=== PATIENT | female | born 1970 | race Caucasian/White ===

== ENCOUNTER → 2017-06-25 | Outpatient (REF) | payer OTHER ==
[~2017-06-25] MED LIST: OMEP20CA3 PO
[2017-06-25 12:45] LABS: BASO % 0.4 % (0.0-1.0); EOS # 0.1 10^3/uL (0.0-0.50); EOS % 1.5 % (0.0-3.0); IMMATURE GRANULOCYTE % 0.1 % (0-0); LYMPH # 2.4 10^3/uL (1.5-4.5); MEAN CORPUSCULAR HEMOGLOBIN 29.9 pg (27.0-33.0); MEAN CORPUSCULAR HGB CONC 32.4 g/dl (32.0-36.5); MEAN CORPUSCULAR VOLUME 92.3 fl (80.0-96.0); MONO # 0.6 10^3/uL (0.0-0.8); MONO % 7.9 % (0.0-5.0); NEUTROPHILS # 4.2 10^3/uL (1.8-7.7); NEUTROPHILS % 57.1 % (36.0-66.0); PLATELET COUNT, AUTOMATED 300 10^3/uL (150-450); RED CELL DISTRIBUTION WIDTH 12.8 % (11.5-14.5); WHITE BLOOD COUNT 7.4 10^3/uL (4.0-10.0)
[2017-06-25 13:04] LABS: ALBUMIN/GLOBULIN RATIO 1.33 (1.00-1.93); ALKALINE PHOSPHATASE 54 U/L (45-117); ALT/SGPT 17 U/L (12-78); AMYLASE 49 U/L (25-115); ANION GAP 7 MEQ/L (8-16); AST/SGOT 9 U/L (15-37); BILIRUBIN,TOTAL 0.6 MG/DL (0.2-1.0); BLOOD UREA NITROGEN 7 MG/DL (7-18); CALCIUM LEVEL 9.2 MG/DL (8.5-10.1); CARBON DIOXIDE LEVEL 29 MEQ/L (21-32); CHLORIDE LEVEL 103 MEQ/L (98-107); CREATININE FOR GFR 0.73 MG/DL (0.55-1.02); GLOMERULAR FILTRATION RATE > 60.0 (>58); GLUCOSE, FASTING 88 MG/DL (70-105); POTASSIUM SERUM 4.3 MEQ/L (3.5-5.1); SODIUM LEVEL 139 MEQ/L (136-145)
== END ==
LOC: M LABDRAW1 11:32
PROVIDERS: ATTEND Family Medicine
DX: R10.11 Right upper quadrant pain (principal)

== ENCOUNTER 2017-07-19 12:59 | Day surgery (SDC) | payer OTHER ==
[~2017-07-19] VITALS: Ht 167.6 cm; Wt 67.6 kg
[2017-07-19] MEDS ORDERED: LIDOCAINE 1% MDV 20ML VIAL SQ PRN (13:30)
[2017-07-19] MEDS ORDERED: LR 1,000 ML IV ONE (13:30)
[2017-07-19] MEDS ORDERED: CLINDAMYCIN 600 MG in APPROPRIATE DILUENT 1 EA IV ONE (13:30)
[2017-07-19 13:32] LABS: CONTROL LINE UCG INT CTR LINE PRESENT
[2017-07-19] MEDS ORDERED: BUPIVACAINE/EPIN 0.25% 30 ML VIAL As Ordered ONE (14:52)
[2017-07-19] MEDS ORDERED: LIDOCAINE 2% INJ 100 MG/5 ML SDV (FOR ANES.) As Ordered ONE (15:10)
[2017-07-19] MEDS ORDERED: PROPOFOL 200 MG/20 ML VIAL As Ordered ONE (15:10)
[2017-07-19] MEDS ORDERED: ROCURONIUM BROMIDE 50 MG/5 ML VIAL/SYRINGE As Ordered ONE (15:10)
[2017-07-19] MEDS ORDERED: fentaNYL 250 MCG/5 ML INJECTION (J3010) As Ordered ONE (15:10)
[2017-07-19] MEDS ORDERED: MIDAZOLAM INJ 2 MG/2 ML VIAL (J2250) As Ordered ONE (15:10)
[2017-07-19] MEDS ORDERED: PHENYLephrine HCL 500 MCG/5 ML (100MCG/ML) SYRINGE (J2370) As Ordered ONE (15:26)
[2017-07-19] MEDS ORDERED: ONDANSETRON 4MG/2ML VIAL (J2405) As Ordered ONE ×2 (15:27→16:15)
[2017-07-19] MEDS ORDERED: dexameTHASONE 4 MG/ML 1ML VIAL (J1100) As Ordered ONE (15:27)
[2017-07-19] MEDS ORDERED: ePHEDrine SULFATE 25 MG/5 ML(5MG/ML) SYRINGE As Ordered ONE (15:36)
[2017-07-19] MEDS ORDERED: NEOSTIGMINE 10 MG/10 ML VIAL (J2710) As Ordered ONE (15:46)
[2017-07-19] MEDS ORDERED: GLYCOPYRROLATE INJ 0.2 MG/ML 2 ML VIAL As Ordered ONE (15:46)
[2017-07-19] MEDS ORDERED: KETOROLAC 60 MG/2 ML VIAL (J1885) As Ordered ONE (15:47)
[2017-07-19] MEDS ORDERED: HYDROmorphone HCL 2 MG/ML 1ML VIAL (J1170) As Ordered ONE (16:00)
[2017-07-19] MEDS ORDERED: PERCOCET 5MG/325MG TAB As Ordered ONE ×2 (16:15→16:49)
[2017-07-19] MEDS ORDERED: fentaNYL 100 MCG/2 ML INJECTION (J3010) As Ordered ONE (16:15)
[2017-07-19] MEDS: fentaNYL 100 MCG/2 ML INJECTION (J3010) IV PRN ×4 (16:18→16:32)
[2017-07-19] MEDS: PERCOCET 5MG/325MG TAB PO PRN ×2 (16:20→16:50)
[2017-07-19] MEDS ORDERED: ONDANSETRON 4MG/2ML VIAL (J2405) IV PRN (17:00)
[2017-07-19] MEDS ORDERED: NORCO, ANEXSIA 5/325MG TABLET (HYDROcodone/ACETAMINOPHEN) PO PRN (17:00)
[2017-07-19] MEDS ORDERED: LR 1,000 ML IV SCH (17:00)
[2017-07-19] MEDS ORDERED: MORPHINE 10 MG/ML 1ML VIAL As Ordered ONE (17:03)
[2017-07-19] MEDS: MORPHINE 10 MG/ML 1ML VIAL IV SCH ×2 (17:05→17:10)
[2017-07-19] MEDS ORDERED: MORPHINE 2 MG/ML 1ML SYRINGE IV SCH (17:30)
[2017-07-19 18:00] VITALS: BP 130/76
[2017-07-19] MEDS ORDERED: METOCLOPRAMIDE INJ 10MG/2ML VIAL (J2765) IV SCH (18:45)
--- NOTE | 2017-07-19 19:26 | RO ---
DATE OF PROCEDURE: 07/19/2017 PREOPERATIVE DIAGNOSIS: Symptomatic cholelithiasis. POSTOPERATIVE DIAGNOSIS: Symptomatic cholelithiasis. PROCEDURE: Laparoscopic cholecystectomy. SURGEON: Dr. Yehuda Wen ASSISTANT RESEARCH SCIENTIST: None. ANESTHESIA: General. ESTIMATED BLOOD LOSS: 10 mL. COMPLICATIONS: None. INDICATIONS FOR PROCEDURE: The patient is a 47-year-old female who presents with right upper quadrant abdominal pain, found to have signs and symptoms consistent with symptomatic cholelithiasis. Recommendation to proceed with laparoscopic, possible open repair. Risks and benefits of the procedure not limited to but including bleeding, infection, hernia formation, damage to surrounding structures and need for further surgery were discussed in detail with the patient. Informed consent was obtained and procedure was planned. DESCRIPTION OF PROCEDURE: The patient was brought back to operating room six after sufficient sedation. The abdomen was sterilely prepped and draped. Next, a time-out was done to confirm proper patient, proper procedure. Following that, an 8 mm infraumbilical incision was made. Veress needle was then inserted and the abdomen was insufflated to 15 mmHg. Next, the Veress needle was removed and an 8 mm port was then placed. The camera was then inserted and the abdomen was examined to make sure there were no signs of injury during Veress needle placement. Next, 3 mm ports were placed, one subxiphoid, two in the right upper quadrant. The fundus of the gallbladder was grasped and elevated up towards the right shoulder. The cystic duct and cystic artery were both dissected free using a combination of blunt and sharp dissection, and they were both then doubly clipped and cut. The gallbladder was then removed from the gallbladder fossa using electrocautery. Once the gallbladder was removed, it was taken out with a 5 mm EndoCatch bag through the umbilical port site. Right upper quadrant was then examined. Hemostasis was controlled with electrocautery. #0 Vicryl suture and a Durga-Elizabeth needle were used to close fascia of the umbilical port site. The abdomen was then desufflated, ports were removed. #4-0 Vicryl subcuticular suture was thrown at the umbilical skin incision to close it. The rest of the abdomen was then cleaned and dried. Steri-Strips were placed, covered by 4x4s and tape, thus ending procedure.
== END 2017-07-19 19:28 | disposition home or self-care (01) ==
LOC: M SDC 12:59
PROVIDERS: ATTEND Surgery
DX: K80.20 Calculus of gallbladder without cholecystitis without obstruction (principal); K21.9 Gastro-esophageal reflux disease without esophagitis; Z88.0 Allergy status to penicillin; Z79.899 Other long term (current) drug therapy
CPT/HCPCS: 47562; 84703; 88304; J1100; J1170; J1885; J2250; J2370; J2405; J2710; J2765; J3010

== ENCOUNTER → 2017-10-16 | Outpatient (CLI) | payer OTHER | LOC: M RAD 09:06 | DX: Z12.31 Encounter for screening mammogram for malignant neoplasm of breast (principal) ==

== ENCOUNTER → 2019-06-02 | Outpatient (CLI) | payer OTHER ==
[~2019-06-02] MED LIST changes: -OMEP20CA3 PO; +OMEP20CA4 PO
--- NOTE | 2019-06-02 13:44 | REPMRS ---
Patient History The patient states she had a clinical breast exam in 2018. No known family history of cancer. [facility] risk for breast cancer is 10.5%. Digital Mammo Screening Bilat: June 02, 2019 - Exam #: [id number] Bilateral CC and MLO view(s) were taken. Technologist: Cristy Donaldson, Technologist Prior study comparison: October 16, 2017, bilateral digital mammo screening bilat performed at [facility]. February 22, 2016, bilateral digital mammo screening bilat performed at [facility]. FINDINGS: The breast tissue is heterogeneously dense. This may lower the sensitivity of mammography. There has been no change in the appearance of the mammogram from the prior studies. There is a moderate amount of residual fibroglandular tissue which is fairly symmetric. There is no interval development of dominant mass, areas of architectural distortion, or clustered microcalcification typical of malignancy. Assessment: BI-RADS/ACR category 1 mammogram. Negative Mammogram. Recommendation Routine screening mammogram in 1 year (for women over age 40). This mammogram was interpreted with the aid of an FDA-approved computer-aided dectection system. Electronically Signed By: Yehuda Hebert MD 06/02/19 [id number]
== END ==
LOC: M RAD 12:04
PROVIDERS: ATTEND Obstetrics & Gynecology
DX: Z12.31 Encounter for screening mammogram for malignant neoplasm of breast (principal)

== ENCOUNTER 2019-12-05 18:12 | Emergency (ER) | payer OTHER ==
[~2019-12-05] VITALS: Ht 167.6 cm; Wt 79.0 kg
[~2019-12-05 18:12] MED LIST changes: +OMEP1CAP73 PO; -OMEP20CA4 PO
[2019-12-05 19:11] LABS: BASO % 0.3 % (0.0-1.0); EOS % 0.2 % (0.0-3.0); HEMATOCRIT 35.3 % (36.0-47.0); HEMOGLOBIN 11.5 g/dl (12.0-15.5); LYMPH # 1.9 10^3/uL (1.5-5.0); LYMPH % 14.8 % (24.0-44.0); MEAN CORPUSCULAR HEMOGLOBIN 29.7 pg (27.0-33.0); MEAN CORPUSCULAR HGB CONC 32.6 g/dl (32.0-36.5); MEAN CORPUSCULAR VOLUME 91.2 fl (80.0-96.0); MONO # 0.8 10^3/uL (0.0-0.8); MONO % 6.2 % (0.0-5.0); NEUTROPHILS # 9.9 10^3/uL (1.5-8.5); NEUTROPHILS % 78.1 % (36.0-66.0); PLATELET COUNT, AUTOMATED 296 10^3/uL (150-450); RED BLOOD COUNT 3.87 10^6/uL (4.00-5.40); WHITE BLOOD COUNT 12.7 10^3/uL (4.0-10.0)
--- NOTE | 2019-12-05 19:26 | REPVR ---
PROCEDURE INFORMATION: Exam: US Retroperitoneal Limited, Kidneys Exam date and time: 12/05/2019 7:20 PM Age: 49 years old Clinical indication: Abdominal pain; Flank; Right; Additional info: R flank pain R/O kidney stone TECHNIQUE: Imaging protocol: Real-time ultrasound of the retroperitoneum with image documentation. Examination was focused on the kidneys. COMPARISON: No relevant prior studies available. FINDINGS: Right kidney: Right kidney measures 11.1 x 5.3 x 4.6 cm. Moderate hydronephrosis demonstrated. Left kidney: Left kidney measures 11 x 5 x 5.3 cm. Two upper pole cysts measure 0 0.8 x 0.8 x 0.5 cm and 1.5 x 1.2 x 1.8 cm, both simple without complex features. IMPRESSION: 1. No calculi demonstrated. Moderate right hydronephrosis may indicate the presence of a distally obstructing calculus. Further evaluation with CT urography suggested if clinically desired. 2. Two non complex upper pole cysts left kidney. Electronically signed by: Esvin Vegas On 12/05/2019 19:26:23 PM
[2019-12-05] MEDS ORDERED: ONDANSETRON 4MG/2ML VIAL (J2405) IV ONE (19:45)
[2019-12-05] MEDS ORDERED: NS 1,000 ML IV ONE (19:45)
[2019-12-05] MEDS ORDERED: KETOROLAC 30 MG/ML VIAL (J1885) IV ONE (19:45)
[2019-12-05] MEDS ORDERED: ISOVUE-370 76% 100ML VIAL (Q9967) As Ordered ONE (20:09)
--- NOTE | 2019-12-05 20:45 | REPVR ---
PROCEDURE INFORMATION: Exam: CT Abdomen And Pelvis Without And With Contrast; Urography Exam date and time: 12/05/2019 8:12 PM Age: 49 years old Clinical indication: Abdominal pain; Flank; Right; Additional info: R hydropnephrosis, reduced output R/O obstructing stone TECHNIQUE: Imaging protocol: Computed tomography of the abdomen and pelvis without and with intravenous contrast. Exam focused on the kidneys and ureters. Radiation optimization: All CT scans at this facility use at least one of these dose optimization techniques: automated exposure control; mA and/or kV adjustment per patient size (includes targeted exams where dose is matched to clinical indication); or iterative reconstruction. Contrast material: ISOVUE 370; Contrast volume: 100 ml; Contrast route: IV; COMPARISON: RENAL US 12/05/2019 7:03 PM FINDINGS: Heart: Small pericardial effusion. Liver: Normal. No mass. Gallbladder and bile ducts: There has been a cholecystectomy. Pancreas: Normal. No ductal dilation. Spleen: Normal. No splenomegaly. Adrenals: Normal. No mass. Kidneys and ureters: There is a 4 mm. obstructive ureteral calculus located at the right UV junction resulting in moderate to severe proximal hydroureteronephrosis. There is moderate periureteral and perinephric stranding. No urinoma demonstrated. Punctate nonobstructive calculus lower pole of the left kidney. Small simple left renal cysts measure up to 1.2 cm. No follow-up suggested. Stomach and bowel: Boggy collapsed appearance of the transverse colon likely related to incomplete distention. Clinical correlation to exclude segmental colitis suggested. Intraperitoneal space: Unremarkable. No free air. No significant fluid collection. Lymph nodes: Unremarkable. No enlarged lymph nodes. Vasculature: Unremarkable. No abdominal aortic aneurysm. Bladder: Unremarkable. Reproductive: Unremarkable. Bones/joints: Unremarkable.No acute fracture. No dislocation. Soft tissues: Unremarkable. IMPRESSION: 1. There has been a cholecystectomy. 2. There is a 4 mm. obstructive ureteral calculus located at the right UV junction resulting in moderate to severe proximal hydroureteronephrosis. There is moderate periureteral and perinephric stranding. No urinoma demonstrated. 3. Punctate nonobstructive calculus lower pole of the left kidney. Small left renal cysts measure up to 1.2 cm. 4. Boggy collapsed appearance of the transverse colon likely related to incomplete distention. Clinical correlation to exclude segmental colitis suggested. Electronically signed by: Esvin Vegas On 12/05/2019 20:45:25 PM
[2019-12-05] MEDS ORDERED: FLOM0.4C39 PO (21:07)
[2019-12-05] MEDS ORDERED: NORC1TAB7 PO (21:07)
[2019-12-05] MEDS ORDERED: KETO10TAB PO (21:07)
[2019-12-05] MEDS ORDERED: NORCO, ANEXSIA 5/325MG TABLET (HYDROcodone/ACETAMINOPHEN) PO ONE (21:15)
[2019-12-05 21:20] LABS: BLOOD UREA NITROGEN 15 MG/DL (7-18); CARBON DIOXIDE LEVEL 24 MEQ/L (21-32); CHLORIDE LEVEL 98 MEQ/L (98-107); CREATININE FOR GFR 0.75 MG/DL (0.55-1.30); GLOMERULAR FILTRATION RATE > 60.0 (>58); GLUCOSE, FASTING 99 MG/DL (70-100); POTASSIUM SERUM 3.8 MEQ/L (3.5-5.1); SODIUM LEVEL 129 MEQ/L (136-145)
[2019-12-05 22:03] VITALS: BP 154/82
== END 2019-12-05 22:08 | disposition home or self-care (01) ==
LOC: M ED 18:12
DX: N20.1 Calculus of ureter (principal); N28.1 Cyst of kidney, acquired; R11.2 Nausea with vomiting, unspecified; Z79.899 Other long term (current) drug therapy; Z88.0 Allergy status to penicillin
CPT/HCPCS: 74178; 76775; 80047; 80048; 81001; 84702; 85025; 96374; 96375; 99284; J1885; J2405; Q9967

== ENCOUNTER → 2019-12-09 | Outpatient (REF) | payer OTHER ==
[~2019-12-09] MED LIST changes: +FLOM0.4C39 PO; +KETO10TAB PO; +NORC1TAB7 PO
[2019-12-09 13:18] LABS: APPEARANCE, URINE HAZY (CLEAR); BACTERIA, URINE AUTO 1+ (NEGATIVE); BILIRUBIN, URINE AUTO NEGATIVE (NEGATIVE); BLOOD, URINE BLOOD 1+ (NEGATIVE); COLOR, URINE STRAW (YELLOW); GLUCOSE, URINE (UA) AUTO NEGATIVE (NEGATIVE); KETONE, URINE AUTO NEGATIVE (NEGATIVE); LEUKOCYTE ESTERASE, URINE AUTO TRACE (NEGATIVE); NITRITE, URINE AUTO NEGATIVE (NEGATIVE); PROTEIN, URINE AUTO NEGATIVE (NEGATIVE); RBC, URINE AUTO 0 /HPF (0-3); SPECIFIC GRAVITY URINE AUTO 1.001 (1.002-1.035); SQUAMOUS EPITHELIAL CELL UR AU 2 /HPF (0-6); UROBILINOGEN, URINE AUTO 0.2 mg/dL (0.0-2.0); WBC, URINE AUTO 2 /HPF (0-3)
== END ==
LOC: M SFHCADAM 12:24
PROVIDERS: ATTEND Physician Assistant
DX: N20.0 Calculus of kidney (principal)
CPT/HCPCS: 81001; 87086; G0463

== ENCOUNTER → 2019-12-15 | Outpatient (CLI) | payer OTHER ==
--- NOTE | 2019-12-16 17:05 | REP ---
Clinical: Nephrolithiasis. Technique: Real time smith scale ultrasound examination using curved array transducer. Findings: The bilateral kidneys are normal in contour, size, echogenicity, and reniform shape without hydronephrosis, nephrolithiasis, or renal mass lesion. Right kidney measures 10.4 x 4.0 x 4.9 cm. Left kidney measures 11.5 x 5.4 x 5.2 cm and includes 8 mm and 17 mm simple upper pole cysts. Bladder is normal in appearance and measures 13.3 x 7.8 x 9.2 cm with bilateral ureteral jets noted. Impression: 1. Small simple left renal cyst. 2. No hydronephrosis or nephrolithiasis noted. Previously identified right renal obstructive uropathy on CT has resolved. Electronically Signed by Jose Cruz Brizuela MD 12/16/2019 04:57 P
== END ==
LOC: M RAD 11:26
PROVIDERS: ATTEND Physician Assistant
DX: N28.1 Cyst of kidney, acquired (principal)